=== PATIENT | female | born 1975 | race Caucasian/White ===

== ENCOUNTER 2017-05-07 00:42 | Emergency (ER) | payer OTHER ==
--- NOTE | 2017-05-07 01:11 | PDOC ---
Attending Attestation - Resident Resident Name: CaleroMalaika <Mansoor Ruff I - Last Filed: 05/07/17 01:11> - HPI HPI: 05/07/17 03:31 The patient is a 41 year old female with a significant PMH of HTN who presents to the ED after a hot stein this evening. She checked her blood pressure shortly after and noted it to be high, prompting her to come to the ED. The patient was on medication for blood pressure but stopped it a while ago. At the ED, her blood pressure was 153/94. The patient denies chest pain, headache, nausea, diaphoresis, or any other complaints. - Physicial Exam PE: 05/07/17 03:32 The patient is a 41 year old female with a significant PMH of HTN who presents to the ED after a hot stein this evening. She checked her blood pressure shortly after and noted it to be high, prompting her to come to the ED. The patient was on medication for blood pressure but stopped it a while ago. At the ED, her blood pressure was 153/94. The patient denies chest pain, headache, nausea, diaphoresis, or any other complaints. - Medical Decision Making 05/07/17 03:32 The patient is a 41 year old female with significant PMH of HTN. Patient was observed in the ED for several hours, after which her blood pressure was 114/ 67. Patient will be released home and given a PCP referral for follow up. <Dave Bermudez - Last Filed: 05/07/17 04:17> Heart Score/ECG Review #1 ECG reviewed & interpreted by me at: 01:30 05/07/17 04:13 Vent rate 75 bpm DE interval 188 ms QRS duration 94 ms QT/QTc 408/455 ms P-R-T axes 39 51 32 Normal sinus rhythm. Normal ECG. <Dave Bermudez - Last Filed: 05/07/17 04:17>
[2017-05-07 01:20] VITALS: BMI 28.9
[2017-05-07 03:15] VITALS: BP 114/67; PULSE 70; TEMP 98.8
--- NOTE | 2017-05-07 03:30 | PDOC ---
History of Present Illness <Dave Bermudez - Last Filed: 05/07/17 04:18> - General History Source: Patient Exam Limitations: No Limitations - History of Present Illness Initial Comments: 41yo F with PMH of htn and depression presents c/o elevated blood pressure. Pt has hx of htn and used to take Losartan for her blood pressure. Pt discontinued Losartan 1 yr ago. Last night pt describes a "hot stein" and she measured her blood pressure after that episode. Pt reports her blood pressure was 197/115, prompting her to come to the ER. 05/07/17 06:56 Associated Symptoms: denies: chest pain, diaphoresis, fever/chills, headaches, nausea/vomiting, rash, shortness of breath, syncope, weakness <Malaika Calero - Last Filed: 05/07/17 07:18> - General Chief Complaint: Blood Pressure Problem Stated Complaint: BLOOD PRESSURE PROBLEM Time Seen by Provider: 05/07/17 00:56 Past History <Dave Bermudez - Last Filed: 05/07/17 04:18> - Past Medical History Asthma: No Cancer: No Cardiac Disorders: No Diabetes: No HTN: Yes Seizures: No Thyroid Disease: No Other medical history: depression - Psycho/Social/Smoking Cessation Hx Smoking History: Never smoked Have you smoked in the past 12 months: No Hx Alcohol Use: No Drug/Substance Use Hx: No Hx Substance Use Treatment: No <Malaika Calero - Last Filed: 05/07/17 07:18> - Past Medical History Allergies/Adverse Reactions: Allergies Allergy/AdvReac Type Severity Reaction Status Date / Time No Known Allergies Allergy Verified 03/22/13 08:32 Home Medications: Ambulatory Orders Acetaminophen [Tylenol .Regular Strength -] 650 mg PO Q3H PRN #0 tablet Benzocaine Ointment [Americaine Ointment -] 1 applic TP PRN PRN #0 tube Benzocaine [Americaine 20% Luckey -] 1 spray TP PRN PRN #0 spraybtl 03/24/13 Bisacodyl Suppository [Dulcolax Suppository -] 10 mg RC PRN PRN #0 supp.rect 12/01 Ibuprofen [Motrin -] 600 mg PO Q4H PRN #0 tablet 03/24/13 Oxycodone HCl/Acetaminophen [Percocet 5-325 mg Tablet] 1 combo PO Q4H PRN #0 tablet 03/24/13 Sennosides/Docusate Sodium [Pericolace -] 2 each PO HS PRN #0 tablet 03/24/13 Witch Magdalena 50% (Tucks) [Tucks Pads -] 1 pad TP PRN PRN #0 pad 03/24/13 Review of Systems - Review of Systems Able to Perform ROS?: Yes Is the patient limited Vincentian proficient: No Constitutional: No: Chills, Diaphoresis, Fever HEENTM: No: Recent change in vision, Ear Pain, Nose Pain, Throat Pain Respiratory: No: Shortness of Breath, Stridor, Wheezing Cardiac (ROS): No: Chest Pain, Edema, Irregular Heart Rate, Lightheadedness, Palpitations, Syncope, Chest Tightness ABD/GI: No: Abdominal Distended, Nausea, Rectal Bleeding, Vomiting : No: Burning, Dysuria, Hematuria Musculoskeletal: No: Joint Pain, Muscle Pain Integumentary: No: Bruising, Erythema, Rash Neurological: No: Headache, Weakness, Unsteady Gait Psychiatric: Yes: Depression (hx of depression, takes Xanax 0.5mg every other day prn) <Malaika Calero - Last Filed: 05/07/17 07:18> *Physical Exam - Vital Signs Last Vital Signs Temp Pulse Resp BP Pulse Ox 98.8 F 70 18 114/67 98 05/07/17 03:14 05/07/17 03:14 05/07/17 01:10 05/07/17 03:14 05/07/17 03:14 <Dave Bermudez - Last Filed: 05/07/17 04:18> - Vital Signs Last Vital Signs Temp Pulse Resp BP Pulse Ox 98.8 F 70 18 114/67 98 05/07/17 03:14 05/07/17 03:14 05/07/17 01:10 05/07/17 03:14 05/07/17 03:14 - Physical Exam General Appearance: Yes: Nourished, Appropriately Dressed. No: Apparent Distress HEENT: positive: EOMI, Normal Voice, Other (moist mucous membranes). negative: Pale Conjunctivae, Scleral Icterus (R), Scleral Icterus (L), Nasal Congestion, Rhinorrhea Neck: positive: Trachea midline, Supple Respiratory/Chest: positive: Lungs Clear, Normal Breath Sounds. negative: Respiratory Distress, Accessory Muscle Use Cardiovascular: positive: Regular Rhythm, Regular Rate, S1, S2. negative: Murmur Gastrointestinal/Abdominal: positive: Soft. negative: Distended, Guarding, Rebound, Tenderness Musculoskeletal: positive: Normal Inspection. negative: Decreased Range of Motion Extremity: positive: Normal Inspection. negative: Swelling, Calf Tenderness, Erythema Integumentary: positive: Normal Color, Dry, Warm Neurologic: positive: Fully Oriented, Alert, Normal Mood/Affect, Normal Response , Motor Strength 5/5 <Malaika Calero - Last Filed: 05/07/17 07:18> Heart Score/ECG Review #1 05/07/17 04:19 Vent rate 75 bpm LA interval 188 ms QRS duration 94 ms QT/QTc 408/455 ms P-R-T axes 39 51 32 Normal sinus rhythm. Normal ECG. <Dave Bermudez - Last Filed: 05/07/17 04:18> Medical Decision Making - Medical Decision Making 41yo F with PMH of htn and depression presents c/o elevated blood pressure. EKG - NSR 154/93 on arrival to ER. 114/67 upon reassessment at 3:14. Pt requests referrals for a PCP and a Psychiatrist. Pt reports feeling better. Pt can go home. 05/07/17 07:15 <Malaika Calero - Last Filed: 05/07/17 07:18> *DC/Admit/Observation/Transfer <Dave Bermudez - Last Filed: 05/07/17 04:18> - Discharge Dispostion Admit: No <Malaika Calero - Last Filed: 05/07/17 07:18> Diagnosis at time of Disposition: Fluctuating blood pressure - Discharge Dispostion Disposition: HOME - Referrals Referrals: Zoila Pinto MD [Staff Physician] - Odell Madrigal MD [Staff Physician] - Marty Saenz NP [Nurse Practitioner] - Gee Byers MD [Staff Physician] - - Patient Instructions Printed Discharge Instructions: DI for High Blood Pressure, How to Monitor Your Blood Pressure at Home Additional Instructions: Please make an appointment with a Primary Care Doctor (either Dr. Madrigal or Dr. Pinto) within the next week. Please make an appointment with a Psychiatrist (either Dr. Byers or Letty). Please return to the hospital for persistent or worsening symptoms of increased blood pressure, headache, dizziness, lightheadedness, heart racing, palpitations , shortness of breath.
--- NOTE | 2017-05-16 20:34 | EKG ---
Test Reason : Blood Pressure : / mmHG Vent. Rate : 075 BPM Atrial Rate : 075 BPM P-R Int : 188 ms QRS Dur : 094 ms QT Int : 408 ms P-R-T Axes : 039 051 032 degrees QTc Int : 455 ms NORMAL SINUS RHYTHM NORMAL ECG WHEN COMPARED WITH ECG OF 11-SEP-2005 13:55, NO SIGNIFICANT CHANGE WAS FOUND SUBMITTED ON 05-16-2017 NO CLINICAL INFORMATION IS AVAILABLE REPEAT EKG IF CLINICALLY INDICATED Confirmed by JOSE SNEED MD ([id number]) on 05/16/2017 8:33:41 PM Referred By: Confirmed By:JOSE SNEED MD
== END 2017-05-07 03:49 | disposition home or self-care (01) ==
LOC: JER 00:42
DX: I10 Essential (primary) hypertension (principal); F32.9 Major depressive disorder, single episode, unspecified
CPT/HCPCS: 93005; 93010; 99282-25

== ENCOUNTER 2018-12-29 13:41 | Emergency (ER) | payer SELFPAY ==
[2018-12-29 14:01] VITALS: TEMP 98.6
[2018-12-29] MEDS ORDERED: MAG HYDROX/AL HYDROX/SIMETH -MYLANTA- ORAL SUSPENSION PO ONE (14:27)
[2018-12-29] MEDS ORDERED: FAMOTIDINE 20 MG/50 ML IVPB 20 MG/50 ML MG IVPB ONE (14:27)
[2018-12-29] MEDS ORDERED: SODIUM CHLORIDE 0.9% 1000 ML INFUS.BAG IV ONE (14:27)
[2018-12-29] MEDS ORDERED: MAG HYDROX/AL HYDROX/SIMETH 30 ML UNIT-DOSE CUP ONE (14:31)
[2018-12-29] MEDS ORDERED: ONDANSETRON 4 MG/2 ML VIAL IVPUSH ONE (14:53)
[2018-12-29] MEDS ORDERED: ONDANSETRON 4 MG/2 ML VIAL ONE (14:56)
[2018-12-29 15:10] LABS: BASO % 0.3 % (0-2.0); HEMOGLOBIN 14.9 GM/dL (10.7-15.3); LYMPH % 30.4 % (8-40); MCH 28.9 pg (25.7-33.7); MCHC 33.8 g/dl (32.0-36.0); MEAN CELL VOLUME 85.4 fl (80-96); MEAN PLT VOLUME 8.3 fl (7.5-11.1); NEUT % 63.3 % (42.8-82.8); PLATELET COUNT 219 K/MM3 (134-434); RBC 5.15 M/mm3 (3.60-5.2); RDW 13.7 % (11.6-15.6); WHITE BLOOD COUNT 7.4 K/mm3 (4.0-10.0)
[2018-12-29 15:15] VITALS: PULSE 83
[2018-12-29 15:16] VITALS: BP 137/86
[2018-12-29 15:22] LABS: INR 1.08 (0.83-1.09); PROTHROMBIN TIME (PATIENT) 12.8 SEC (9.7-13.0)
[2018-12-29 15:28] LABS: ALBUMIN 3.9 g/dl (3.4-5.0); BILIRUBIN,TOTAL 0.4 mg/dL (0.2-1); CALCIUM 8.7 mg/dL (8.5-10.1); CREATININE 0.6 mg/dL (0.55-1.3); POTASSIUM 3.9 mmol/L (3.5-5.1); TOT PROT 7.1 g/dl (6.4-8.2)
--- NOTE | 2018-12-29 15:35 | PDOC ---
History of Present Illness - General Chief Complaint: Chest Pain Stated Complaint: SENT BY URGENT CARE \ CHEST PAIN Time Seen by Provider: 12/29/18 14:05 History Source: Patient Exam Limitations: No Limitations - History of Present Illness Initial Comments: 12/29/18 15:30 43F with PMH of HTN who presents to the ER with 3 days of LUQ pain. The patient describes a burning pain which has been going on intermittently for 1 week and 3 days ago became constant, worsened with fried foods and laying flat, radiating into her chest and to her back. She tried taking simethicone with mild relief. She admits to bloating, gas, and nausea. She denies fever, chills, SOB, vomiting, diarrhea, melena, hematochezia. Past History - Past Medical History Allergies/Adverse Reactions: Allergies Allergy/AdvReac Type Severity Reaction Status Date / Time No Known Allergies Allergy Verified 12/29/18 14:28 Home Medications: Ambulatory Orders Acetaminophen [Tylenol .Regular Strength -] 650 mg PO Q3H PRN #0 tablet Benzocaine Ointment [Americaine Ointment -] 1 applic TP PRN PRN #0 tube Benzocaine [Americaine 20% Crosby -] 1 spray TP PRN PRN #0 spraybtl 03/24/13 Bisacodyl Suppository [Dulcolax Suppository -] 10 mg RC PRN PRN #0 supp.rect 12/01 Ibuprofen [Motrin -] 600 mg PO Q4H PRN #0 tablet 03/24/13 Oxycodone HCl/Acetaminophen [Percocet 5-325 mg Tablet] 1 combo PO Q4H PRN #0 tablet 03/24/13 Sennosides/Docusate Sodium [Pericolace -] 2 each PO HS PRN #0 tablet 03/24/13 Witch Magdalena 50% (Tucks) [Tucks Pads -] 1 pad TP PRN PRN #0 pad 03/24/13 Asthma: No Cancer: No Cardiac Disorders: No COPD: No Diabetes: No HTN: Yes Seizures: No Thyroid Disease: No - Immunization History Immunization Up to Date: Yes - Suicide/Smoking/Psychosocial Hx Smoking History: Never smoked Have you smoked in the past 12 months: No Information on smoking cessation initiated: No Hx Alcohol Use: No Drug/Substance Use Hx: No Hx Substance Use Treatment: No Review of Systems - Review of Systems Able to Perform ROS?: Yes Comments:: 12/29/18 15:35 GENERAL/CONSTITUTIONAL: No fever or chills. No weakness. HEAD, EYES, EARS, NOSE AND THROAT: No change in vision. No ear pain or discharge. No sore throat. CARDIOVASCULAR: No chest pain, palpitations, or lightheadedness. RESPIRATORY: No cough, wheezing, shortness of breath, or hemoptysis. GASTROINTESTINAL: + for nausea, vomiting, and abdominal pain. GENITOURINARY: No dysuria, frequency, hematuria, or change in urination. MUSCULOSKELETAL: No joint or muscle swelling or pain. No neck or back pain. SKIN: No rash or lesions. NEUROLOGIC: No headache, numbness, tingling, focal weakness, loss of consciousness, or change in strength/sensation. Is the patient limited Uruguayan proficient: No *Physical Exam - Vital Signs Last Vital Signs Temp Pulse Resp BP Pulse Ox 98.6 F 83 14 137/86 100 12/29/18 13:44 12/29/18 15:15 12/29/18 15:15 12/29/18 15:15 12/29/18 15:15 - Physical Exam Comments: 12/29/18 15:38 GENERAL: Well developed, well nourished. Awake and alert. No acute distress. HEENT: Normocephalic, atraumatic. Hearing grossly normal. Moist mucous membranes. PERRLA, EOMI. No conjunctival pallor. Sclera are non-icteric. NECK: Supple. Full ROM. No JVD. CARDIOVASCULAR: Regular rate and rhythm. No murmurs, rubs, or gallops. PULMONARY: No evidence of respiratory distress. Lungs clear to auscultation bilaterally. No wheezing, rales or rhonchi. ABDOMINAL: Soft. Non-tender. Non-distended. No rebound or guarding. Negative Anderson's. GENITOURINARY: No CVA tenderness bilaterally. MUSCULOSKELETAL: Normal range of motion at all joints. No bony deformities or tenderness. EXTREMITIES: No cyanosis. No clubbing. No edema. No calf tenderness or swelling. SKIN: Warm and dry. Normal capillary refill. No rashes. No jaundice. NEUROLOGICAL: Alert, awake, appropriate. Cranial nerves 2-12 intact. Normal speech. Gait is normal without ataxia. PSYCHIATRIC: Cooperative. Good eye contact. Appropriate mood and affect. ED Treatment Course - LABORATORY CBC & Chemistry Diagram: 12/29/18 14:45 12/29/18 14:45 - ADDITIONAL ORDERS Additional order review: Laboratory Results 12/29/18 12/29/18 14:45 14:45 PT with INR 12.80 INR 1.08 Sodium 137 Potassium 3.9 Chloride 107 Carbon Dioxide 23 Anion Gap 8 BUN 8 Creatinine 0.6 Est GFR (CKD-EPI)AfAm 127.58 Est GFR (CKD-EPI)NonAf 110.08 Random Glucose 112 H Calcium 8.7 Total Bilirubin 0.4 AST 14 L ALT 22 Alkaline Phosphatase 52 Total Protein 7.1 Albumin 3.9 Lipase 94 12/29/18 14:45 RBC 5.15 MCV 85.4 MCHC 33.8 RDW 13.7 MPV 8.3 Neutrophils % 63.3 Lymphocytes % 30.4 D Monocytes % 5.0 Eosinophils % 1.0 Basophils % 0.3 - RADIOLOGY Radiology Studies Ordered: Category Date Time Status CHEST PA & LAT [RAD] Stat Radiology 12/29/18 14:27 Ordered - Medications Given in the ED: ED Medications Discontinued Medications Generic Name Dose Route Start Last Admin Trade Name Freq PRN Reason Stop Dose Admin Al Hydroxide/Mg Hydroxide 30 ml 12/29/18 14:27 12/29/18 14:54 Mylanta Suspension - PO 12/29/18 14:28 30 ml ONCE ONE Administration Famotidine/Sodium Chloride 20 mg in 50 mls @ 100 mls/hr 12/29/18 14:27 14:55 Pepcid 20 Mg Premixed Ivpb - IVPB 12/29/18 14:56 100 mls/hr ONCE ONE Administration Ondansetron HCl 4 mg 12/29/18 14:53 12/29/18 14:55 Zofran Injection IVPUSH 12/29/18 14:54 4 mg ONCE ONE Administration Sodium Chloride 1,000 ml 12/29/18 14:27 12/29/18 14:54 Normal Saline - IV 12/29/18 14:28 1,000 ml ONCE ONE Administration Medical Decision Making - Medical Decision Making 12/29/18 15:38 43F with a PMH of HTN who presents with LUQ pain concerning for PUD, gastritis, GERD. Due to length of symptoms and atypicality, it is less likely that it is ACS. Pt is well appearing. Will treat with GI cocktail and reassess. POCUS negative for cholecystitis. Pending labs and CXR. 12/29/18 17:16 Labs WNL including lipase. EKG unremarkable. Pt's pain resolved upon medication. Will d/c with GI f/u. *DC/Admit/Observation/Transfer Diagnosis at time of Disposition: Abdominal pain Qualifiers: Abdominal location: left upper quadrant Qualified Code(s): R10.12 - Left upper quadrant pain - Discharge Dispostion Disposition: HOME Condition at time of disposition: Stable Decision to Admit order: No - Referrals Referrals: Ayush Hammond MD [Staff Physician] - [facility] [facility] [place] [facility] [place] Group] - Patient Instructions Printed Discharge Instructions: DI for Gastritis Additional Instructions: Your ER visit is not complete until your follow up with your primary care physician. Please follow up with your primary care physician in 1-2 days. Please return to the ER if you have any signs or symptoms of chest pain, shortness of breath, uncontrollable fever, chills, nausea, vomiting, numbness, tingling, or weakness in any part of your body, changes in vision, or slurred speech. Please return to the ER if symptoms persist, worsen, or new symptoms arise. - Post Discharge Activity
--- NOTE | 2018-12-29 15:44 | PDOC ---
Documentation entered by Evelyn Bailey SCRIBE, acting as scribe for Taya Rose MD. Taya Rose MD: This documentation has been prepared by the Lynn casey Nirvannie, SCRIBE, under my direction and personally reviewed by me in its entirety. I confirm that the documentation accurately reflects all work, treatment, procedures, and medical decision making performed by me. Attending Attestation - Resident Resident Name: Estrada Carvalho - ED Attending Attestation I have performed the following: I have examined & evaluated the patient, The case was reviewed & discussed with the resident, I agree w/resident's findings & plan - HPI HPI: 12/29/18 15:21 [id number], with significant past medical history of HTN and depression, who present to the ED with 3 days of epigastric burn and chest pain. As per patient, she has been keeping up with Ramadan, however, today broke her fast secondary to her discomfort. AP and chest discomfort worsening with eating foods, as she does admit to eating fried/fatty foods. Denies fever, chills, SOB, palpitation, dizziness, weakness, N, V, D, bladder and bowel problems, leg swelling, No sick contacts or travel. No new changes in medications. No suspicious food intake Allergies: None Past Medical History: HTN and Depression. Social history: Lives with family. No tobacco, ETOH or drug use. Surgical history: None reported. Meds: as documented in EMR PMD: None reported. 12/30/18 07:20 - Physicial Exam PE: 12/29/18 15:21 Agree with the resident's HPI and PE as documented in the electronic medical record. NAD, well appearing, PERRL, EOMI, MMM, nl conjunctiva, anicteric; neck supple. lungs clear, RRR, abdomen soft +Mild epigastric and left sided tenderness. no Anderson's sign. no CVAT. no rebound or guarding. DUMONT x4, no focal neuro deficits. No peripheral edema. normal color for ethnicity, WWP. 12/29/18 15:41 - Medical Decision Making 12/29/18 15:42 ITaya MD, attest that this document has been prepared under my direction and personally reviewed by me in its entirety. I further attest, that it accurately reflects all work, treatment, procedures and medical decision -making performed by me. See HPI for details Vital signs reviewed, wnl. DDx abdominal pain: Renal colic, biliary colic, metabolic/electrolyte derangements. GERD, PUD, esophageal spasm, pancreatitis, hepatitis, constipation , colitis, gastroenteritis, cholecystitis, UTI, pyelonephritis, hernia, msk strain Prior notes reviewed, including admissions, discharges and consultations. laboratory results and imaging reviewed, basic labs and lytes wnl, notable for normal lipase and LFTs. neg preg test. EKG normal sinus rhythm at 79 bpm, no interval abnormalities, narrow QRS, ST and T wave segments and morphology normal. Nonspecific T wave abnormalities - ED course - Gi cocktail, antiemetic, reassess and improved - doubt cardiac, with NSR EKG without ischemia. chest discomfort emanating from epigastrium and LUQ - doubt intra abdominal pathology. bedside limited abdomen US, biliary and renal - no stones, no cholecystitis, no anderson's sign and CBD normal with inner diameter <3mm. no hydronephrosis. Pt to be discharged in stable condition. Patient made aware of impression and plan, return precautions discussed (including but not limited to worsening pain or symptoms), fevers, or signs of infection, chest pain, respiratory distress, inability to tolerate oral intake, dehydration, syncope, or neurologic changes) . Follow up with PMD and/or GI specialist as recommended, follow up information provided, take medications as instructed for duration of time. continue with supportive care, avoid triggers and precipitants. All questions answered to patient's satisfaction and expressed understanding and comfort with this. Patient does not suffer from an acute life-threatening medical condition at this time and is safe for outpatient follow-up. 12/29/18 15:47 12/29/18 15:57 Heart Score/ECG Review #1 ECG reviewed & interpreted by me at: 13:40 General ECG Interpretation: Sinus Rhythm, Normal Rate, Normal Intervals, No acute ischemic changes Compared to previous ECG there are: No significant change 12/29/18 15:45 EKG normal sinus rhythm at 79, no interval abnormalities, narrow QRS, ST and T wave segments and morphology normal. Nonspecific T wave abnormalities - TWF in III only, but also flipped P wave, could be lead placement. Procedures - Bedside Ultrasound Bedside Ultrasound: Gallbladder Remarks: 12/29/18 15:46 POCUS renal exam performed, indication includes abdominal/flank pain. views obtained: bilateral kidneys in short and long axis. findings: no evidence of hydronephrosis. Impression: no acute renal pathology or hydronephrosis. POCUS biliary exam: Indication: abdominal pain Views: gallbladder long and short axis, CBD Findings: no stones or GB wall thickening or pericholecystic fluid, normal CBD < 3mm for age. Neg sono murphys Impression: no acute findings. No cholelithiasis or cholecystitis.
--- NOTE | 2018-12-30 12:25 | EKG ---
Test Reason : Blood Pressure : / mmHG Vent. Rate : 079 BPM Atrial Rate : 079 BPM P-R Int : 146 ms QRS Dur : 088 ms QT Int : 388 ms P-R-T Axes : -02 044 023 degrees QTc Int : 444 ms NORMAL SINUS RHYTHM NORMAL ECG WHEN COMPARED WITH ECG OF 07-MAY-2017 01:31, NO SIGNIFICANT CHANGE WAS FOUND Confirmed by ANTONIA MYERS MD ([id number]) on 12/30/2018 12:25:07 PM Referred By: Confirmed By:ANTONIA MYERS MD
== END 2018-12-29 17:40 | disposition home or self-care (01) ==
LOC: JER 13:41
PROC: 3E0337Z Introduction of Electrolytic and Water Balance Substance into Peripheral Vein, Percutaneous Approach (ICD-10-PCS; principal; 2018-12-29)
PROC: 3E033GC Introduction of Other Therapeutic Substance into Peripheral Vein, Percutaneous Approach (ICD-10-PCS; 2018-12-29)
DX: R10.12 Left upper quadrant pain (principal); I10 Essential (primary) hypertension
CPT/HCPCS: 36415; 71046-TC-FY; 80053; 83690; 84703; 85025; 85610; 93005; 93010; 99285-25; J7030

== ENCOUNTER 2022-09-14 09:41 | Emergency (ER) | payer OTHER ==
[2022-09-14 10:06] VITALS: BMI 31.7
[2022-09-14 10:50] VITALS: RESP 20
[2022-09-14 11:54] LABS: BASO % 0.2 % (0-2.0); EOS % 0.5 % (0-4.5); HEMATOCRIT 45.2 % (32.4-45.2); HEMOGLOBIN 15.4 GM/dL (10.7-15.3); LYMPH % 22.1 % (8-40); MCH 28.5 pg (25.7-33.7); MCHC 34.1 g/dl (32.0-36.0); MEAN CELL VOLUME 83.6 fl (80-96); MEAN PLT VOLUME 7.5 fl (7.5-11.1); MONO % 4.2 % (3.8-10.2); PLATELET COUNT 300 10^3/uL (134-434); RBC 5.41 M/mm3 (3.60-5.2); RDW 13.5 % (11.6-15.6)
[2022-09-14 11:59] LABS: EPI CELLS >36 /uL (0-25.1); HYALINE CASTS 1 /uL (0-3.1); PH,URINE 5.5 (5.0-8.0); URINE APPEARANCE CLOUDY; URINE BACTERIA 939 /uL (0-1359); URINE BILIRUBIN NEGATIVE (NEGATIVE); URINE COLOR YELLOW; URINE GLUCOSE (UA) NEGATIVE (NEGATIVE); URINE KETONE NEGATIVE (NEGATIVE); URINE LEUK ESTERASE 1+ (NEGATIVE); URINE NITRITE NEGATIVE (NEGATIVE); URINE PROTEIN NEGATIVE (NEGATIVE); URINE RBC 5 /uL (0-23.9); URINE UROBILINOGEN 0.2 mg/dL (0.2-1.0); URINE WBC 37 /uL (0-25.8)
[2022-09-14 12:18] LABS: BLOOD UREA NITROGEN 7.2 mg/dL (7-18); CALCIUM 9.3 mg/dL (8.5-10.1)
[2022-09-14 12:21] LABS: CREATININE 0.7 mg/dL (0.55-1.3)
[2022-09-14 12:23] LABS: BILIRUBIN,TOTAL 0.6 mg/dL (0.2-1); TOT PROT 7.4 g/dl (6.4-8.2)
[2022-09-14 15:27] VITALS: BP 121/76; PULSE 74; TEMP 98.4
== END 2022-09-14 15:42 | disposition home or self-care (01) ==
LOC: JER 09:41
DX: N39.0 Urinary tract infection, site not specified (principal); I10 Essential (primary) hypertension
CPT/HCPCS: 36415; 70450-TC; 71046-TC-FY; 80053; 81003; 84484; 85025; 87077; 87086; 93005; 93010; 99285-25

== ENCOUNTER 2022-09-27 14:47 | Emergency (ER) | payer OTHER ==
[2022-09-27 15:02] VITALS: TEMP 98.2; BMI 30.5
[2022-09-27 16:19] LABS: URINE APPEARANCE CLOUDY; URINE BILIRUBIN NEGATIVE (NEGATIVE); URINE COLOR YELLOW; URINE GLUCOSE (UA) NEGATIVE (NEGATIVE); URINE KETONE 1+ (NEGATIVE); URINE LEUK ESTERASE 2+ (NEGATIVE); URINE NITRITE NEGATIVE (NEGATIVE); URINE PROTEIN NEGATIVE (NEGATIVE); URINE UROBILINOGEN 0.2 mg/dL (0.2-1.0)
[2022-09-27 17:11] VITALS: BP 146/80; PULSE 81; RESP 16
[2022-09-27 17:40] LABS: BASO % 1.5 % (0-2.0); EOS % 0.4 % (0-4.5); HEMATOCRIT 44.5 % (32.4-45.2); HEMOGLOBIN 15.6 GM/dL (10.7-15.3); LYMPH % 29.3 % (8-40); MCH 28.9 pg (25.7-33.7); MEAN CELL VOLUME 82.6 fl (80-96); MEAN PLT VOLUME 8.3 fl (7.5-11.1); MONO % 5.2 % (3.8-10.2); NEUT % 63.6 % (42.8-82.8); PLATELET COUNT 293 10^3/uL (134-434); RBC 5.39 M/mm3 (3.60-5.2); RDW 13.8 % (11.6-15.6); WHITE BLOOD COUNT 8.7 K/mm3 (4.0-10.0)
[2022-09-27 17:46] LABS: INR 1.21 (0.83-1.09)
[2022-09-27 17:48] LABS: ACTIVATED PTT 30.9 SECONDS (25.2-36.5)
[2022-09-27 17:56] LABS: BLOOD UREA NITROGEN 6.4 mg/dL (7-18); CALCIUM 9.1 mg/dL (8.5-10.1)
[2022-09-27 17:57] LABS: ALBUMIN 4.3 g/dl (3.4-5.0)
[2022-09-27 18:00] LABS: CREATININE 0.7 mg/dL (0.55-1.3)
[2022-09-27 18:01] LABS: BILIRUBIN,TOTAL 0.7 mg/dL (0.2-1); TOT PROT 7.7 g/dl (6.4-8.2)
[2022-09-27] MEDS ORDERED: POTASSIUM CHLORIDE ORAL LIQUID 20 MEQ/15 ML PO ONE (18:43)
[2022-09-27] MEDS ORDERED: FAMOTIDINE 20 MG/50 ML IVPB 20 MG/50 ML MG IVPB ONE ×2 (18:43→18:53)
[2022-09-27] MEDS ORDERED: MAG HYDROX/AL HYDROX/SIMETH 30 ML UNIT-DOSE CUP PO ONE (18:44)
[2022-09-27] MEDS ORDERED: ACETAMINOPHEN 1000 MG/100 ML BAG IVPB ONE (18:44)
[2022-09-27] MEDS ORDERED: ACETAMINOPHEN INJECTION 100 ML IVPB ONE (18:53)
[2022-09-27] MEDS ORDERED: MAG HYDROX/AL HYDROX/SIMETH 30 ML UNIT-DOSE CUP ONE (18:53)
[2022-09-27] MEDS ORDERED: POTASSIUM CHLORIDE TABS 20 MEQ TABLET.ER (FP) PO ONE (18:53)
[2022-09-27] MEDS ORDERED: SODIUM CHLORIDE 1,000 ML IV STA (19:05)
[2022-09-27 19:34] LABS: MAGNESIUM 2.3 mg/dL (1.8-2.4)
[2022-09-27 21:03] LABS: EPI CELLS 99.1 /uL (0-25.1); HYALINE CASTS 1.38 /uL (0-3.1); URINE BACTERIA 1505.9 /uL (0-1359); URINE RBC 5.5 /uL (0-23.9); URINE WBC 124.7 /uL (0-25.8)
== END 2022-09-27 22:29 | disposition home or self-care (01) ==
LOC: JER 14:47
PROC: 3E033GC Introduction of Other Therapeutic Substance into Peripheral Vein, Percutaneous Approach (ICD-10-PCS; principal; 2022-09-27)
DX: R07.9 Chest pain, unspecified (principal); N39.0 Urinary tract infection, site not specified; R10.12 Left upper quadrant pain; E87.6 Hypokalemia
CPT/HCPCS: 0241U-QW; 36415; 74177-TC; 80053; 81003; 83735; 84132; 84484; 84703; 85025; 85610; 85730; 86850; 86900; 86901; 87077; 87086; 93005; 93010; 99285-25; Q9967